=== PATIENT | male | born 1965 | race Caucasian/White ===

== ENCOUNTER 2022-03-19 16:23 | Observation (INO) ==
[2022-03-19] MEDS ORDERED: ONDANSETRON INJ 2 MG/ML 2 ML VIAL IV STA (16:38)
[2022-03-19] MEDS ORDERED: MoRPHine SULFATE 4 MG/ML 1 ML CARP\\VIAL IV STA (16:38)
[2022-03-19] MEDS ORDERED: SODIUM CHLORIDE 0.9% 500 ML IV STA (16:38)
[2022-03-19] MEDS ORDERED: KETOROLAC TROMETHAMINE 15 MG/ML VIAL IV ONE (16:43)
[2022-03-19 17:00] LABS: Hematocrit (blood only) 35.4 % (42-52); Hemoglobin 12.1 g/dL (14.0-18.0); Mean Corpuscular Hemoglobin 35.4 pg (25-34); Mean Corpuscular Hgb Conc 34.2 g/dL (32-36); Mean Corpuscular Volume 103.5 fL (80-100); Platelet Count 134 K/uL (130-400); RDW Coefficient of Variation 13.2 % (11.5-14.5); RDW Standard Deviation 49.7 fL (36.4-46.3); Red Blood Count 3.42 M/uL (4.7-6.1); White Blood Count 18.88 K/uL (4.8-10.8)
[2022-03-19 17:05] LABS: iSTAT Hemoglobin 12.2 g/dl (14.0-18.0); iSTAT Ionized Calcium 1.1 mmol/l (1.12-1.32); iSTAT Potassium 3.4 mmol/L (3.3-5.0)
[2022-03-19] MEDS ORDERED: OPTIRAY 320 100ml IV ONE (17:14)
--- NOTE | 2022-03-19 17:16 | Emergency Department Note ---
Impression & Plan Acute appendicitis ED Provider Note Provider: Daquan Bueno MD DATE OF SERVICE: 03/19/2022 CHIEF COMPLAINT: Abdominal pain HISTORY OF PRESENT ILLNESS: Patient is a 56-year-old gentleman presenting with onset around noon yesterday of severe lower to right-sided abdominal discomfort. Some chills. Nausea and not eating since yesterday. No trauma reported. Denies chest pain or shortness of breath but it hurts when he takes a deep breath. Patient denies a history of abdominal surgery. Patient states he does smoke alcohol. No radiation of the pain down the legs. Has not taken anything at home for the pain. Denies testicular or penile pain. REVIEW OF SYSTEMS: A total of 10 review of systems was obtained and negative except as stated above in the HPI. 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 NECK: Trachea midline. ENT: Mucous membranes pink and moist. LUNGS: Airway patent. No retractions. Breath sounds clear with good air entry bilaterally. HEART: Regular rate and rhythm. No chest wall tenderness ABDOMEN: No significant lower to right side abdominal pain with guarding. No significant epigastric or left-sided abdominal pain. SKIN: Acyanotic, warm, dry, without rashes EXTREMITIES: Without swelling, tenderness or deformity NEUROLOGICAL: No focal deficits. No aphasia. No facial droop or slurred speech. Ambulatory. EK bpm normal sinus rhythm. No PVC or PAC. No acute ST segment elevation or depression with QTC of 423. Normal axis CONTINUOUS CARDIAC MONITORING: was ordered and showed a heart rate of 80s-100s bpm in normal sinus rhythm to sinus tachycardia Patient's laboratory studies and imaging reviewed. Differential includes Appendicitis, testicular torsion, infections, diverticulitis, UTI, obstruction, mesenteric ischemia, aortic pathology, inflammatory bowel disease, renal colic, PUD, pancreatitis, biliary pathology, hernia, volvulus, constipation, as well as other pathologies. IMPRESSION/MEDICAL DECISION MAKING: Patient with onset yesterday of significant abdominal pain reporting chills and significant abdominal tenderness on exam. Given some IV fluids, Zofran for nausea, and pain medication. [id number] creatinine with normal renal function. CBC with evidence of significant leukocytosis of 18.8. Sent for CT scan of the abdomen pelvis given his pain and complaints. Lower suspicion for cardiac or pulm etiology. CT evidence of acute appendicitis without perforation or abscess per the CT report. Patient updated and discussed with general surgery. Cefoxitin ordered. On reevaluation the patient's pain is improving. Nausea improved. The OR for further care. DIAGNOSIS: Acute appendicitis DISPOSITION: Being evaluated by general surgery Past Med/Surg History Medical History Anemia Smoker Social History Smoking Status: Current every day smoker Feels Safe at Home: Yes Allergies Allergies Allergy/AdvReac Type Severity Reaction Status Date / Time No Known Allergies Allergy Unverified 03/19/22 17:04 Home Meds Home Medications Medication Instructions Recorded Confirmed No Known Home Medications 03/19/22 03/19/22 Results & Data (ED) Vital Signs Vital Signs - 24 hr 03/19/22 16:23 03/19/22 16:33 03/19/22 16:38 Temperature 37.3 C Temperature Source Oral Pulse Rate 95 H Pulse Rate [Apical] Pulse Rhythm Regular Pulse Rhythm [Apical] Pulse Strength Normal Pulse Strength [Apical] Respiratory Rate 18 20 Respiratory Effort / Characteristics Non-Labored Respiratory Depth Normal Normal Respiratory Pattern Blood Pressure 113/68 Blood Pressure [Right Arm] Blood Pressure Mean 83 Blood Pressure Mean [Right Arm] Blood Pressure Position Lying Blood Pressure Position [Right Arm] Pulse Oximetry 97 Oxygen Delivery Method Room Air Room Air Sepsis Recent Fever Within 48 Hours No Sepsis New/Unexplained Change in Mental Status No Sepsis Action Taken by Nursing No Action Required 03/19/22 18:10 03/19/22 18:24 Temperature 38.1 C H Temperature Source Oral Pulse Rate 85 Pulse Rate [Apical] 87 Pulse Rhythm Pulse Rhythm [Apical] Regular Pulse Strength Pulse Strength [Apical] Normal Respiratory Rate 20 18 Respiratory Effort / Characteristics Non-Labored Spontaneous Respiratory Depth Normal Respiratory Pattern Regular Blood Pressure 117/68 Blood Pressure [Right Arm] 102/65 Blood Pressure Mean Blood Pressure Mean [Right Arm] 77 Blood Pressure Position Blood Pressure Position [Right Arm] Sitting Pulse Oximetry 94 95 Oxygen Delivery Method Room Air Room Air Sepsis Recent Fever Within 48 Hours Sepsis New/Unexplained Change in Mental Status Sepsis Action Taken by Nursing Laboratory Data Result diagrams: 03/19/22 16:46 03/19/22 16:46 Lab Results 03/19/22 03/19/22 03/19/22 Range/Units 16:46 16:46 16:51 WBC 18.88 H (4.8-10.8) K/uL RBC 3.42 L (4.7-6.1) M/uL Hgb 12.1 L (14.0-18.0) g/dL POC Hgb 12.2 L (14.0-18.0) g/dl Hct 35.4 L (42-52) % POC Hct 36 L (42-52) % MCV 103.5 H (80-100) fL MCH 35.4 H (25-34) pg MCHC 34.2 (32-36) g/dL RDW Std Deviation 49.7 H (36.4-46.3) fL RDW Coeff of Kenisha 13.2 (11.5-14.5) % Plt Count 134 (130-400) K/uL MPV 10.0 (7.4-10.4) fL Immature Gran % (Auto) 0.3 % Neut % (Auto) 80.9 % Lymph % (Auto) 11.1 % Maverick % (Auto) 7.6 % Eos % (Auto) 0.0 % Baso % (Auto) 0.1 % Neut # (Auto) 15.27 H (1.4-6.5) K/uL Lymph # (Auto) 2.10 (1.2-3.4) K/uL Maverick # (Auto) 1.44 H (0.11-0.59) K/uL Eos # (Auto) 0.00 (0-0.5) K/uL Baso # (Auto) 0.01 (0-0.2) K/uL Immature Gran # (Auto) 0.06 H (0.00-0.02) K/uL POC Sodium 132 L (135-144) mmol/L Sodium 133 L (136-145) mmol/L POC Potassium 3.4 (3.3-5.0) mmol/L Potassium 3.4 L (3.5-5.1) mmol/L POC Chloride 94 L (101-112) mmol/L Chloride 97 L (98-107) mmol/L Carbon Dioxide 26 (21-32) mmol/L POC Total CO2 24 (24-31) mmol/L Anion Gap 10 (3-11) POC Anion Gap 18.0 (16-25) mmol/L POC BUN 7 (7-18) mg/dl BUN 9 (6-23) mg/dl Creatinine 1.12 (0.6-1.4) mg/dl POC Creatinine 1.0 (0.6-1.3) mg/dl Est Cr Clr Drug Dosing 79.1 ml/min Est GFR ( Amer) 85.3 ml/min Est GFR (Non-Af Amer) 73.6 ml/min BUN/Creatinine Ratio 8.0 L (10-20) Glucose 141 H (70-99(Fasting)) mg/dl POC Glucose (other) 139 H (70-99) mg/dl Calcium 8.7 (8.5-10.1) mg/dl POC Ioniz Calcium Javier 1.10 L (1.12-1.32) mmol/l Total Bilirubin 1.0 (0.2-1.0) mg/dl AST 14 (13-39) U/L ALT 11 (7-52) U/L Alkaline Phosphatase 60 (34-104) U/L Troponin I High Sens 5.4 (0-20) pg/ml Total Protein 6.8 (6.0-8.3) gm/dl Albumin 3.7 (3.4-5.0) gm/dl Globulin 3.1 (2.5-4.0) gm/dl Albumin/Globulin Ratio 1.2 (0.9-2) Lipase 8 L (11-82) U/L SARS-CoV-2, RNA, NAAT (NEGATIVE) 03/19/22 Range/Units 16:56 WBC (4.8-10.8) K/uL RBC (4.7-6.1) M/uL Hgb (14.0-18.0) g/dL POC Hgb (14.0-18.0) g/dl Hct (42-52) % POC Hct (42-52) % MCV (80-100) fL MCH (25-34) pg MCHC (32-36) g/dL RDW Std Deviation (36.4-46.3) fL RDW Coeff of Kenisha (11.5-14.5) % Plt Count (130-400) K/uL MPV (7.4-10.4) fL Immature Gran % (Auto) % Neut % (Auto) % Lymph % (Auto) % Maverick % (Auto) % Eos % (Auto) % Baso % (Auto) % Neut # (Auto) (1.4-6.5) K/uL Lymph # (Auto) (1.2-3.4) K/uL Maverick # (Auto) (0.11-0.59) K/uL Eos # (Auto) (0-0.5) K/uL Baso # (Auto) (0-0.2) K/uL Immature Gran # (Auto) (0.00-0.02) K/uL POC Sodium (135-144) mmol/L Sodium (136-145) mmol/L POC Potassium (3.3-5.0) mmol/L Potassium (3.5-5.1) mmol/L POC Chloride (101-112) mmol/L Chloride (98-107) mmol/L Carbon Dioxide (21-32) mmol/L POC Total CO2 (24-31) mmol/L Anion Gap (3-11) POC Anion Gap (16-25) mmol/L POC BUN (7-18) mg/dl BUN (6-23) mg/dl Creatinine (0.6-1.4) mg/dl POC Creatinine (0.6-1.3) mg/dl Est Cr Clr Drug Dosing ml/min Est GFR ( Amer) ml/min Est GFR (Non-Af Amer) ml/min BUN/Creatinine Ratio (10-20) Glucose (70-99(Fasting)) mg/dl POC Glucose (other) (70-99) mg/dl Calcium (8.5-10.1) mg/dl POC Ioniz Calcium Javier (1.12-1.32) mmol/l Total Bilirubin (0.2-1.0) mg/dl AST (13-39) U/L ALT (7-52) U/L Alkaline Phosphatase (34-104) U/L Troponin I High Sens (0-20) pg/ml Total Protein (6.0-8.3) gm/dl Albumin (3.4-5.0) gm/dl Globulin (2.5-4.0) gm/dl Albumin/Globulin Ratio (0.9-2) Lipase (11-82) U/L SARS-CoV-2, RNA, NAAT NEGATIVE (NEGATIVE) Administered Medications Discontinued Medications Sodium Chloride (Nss) 500 mls @ 999 mls/hr IV .Q31M STA Stop: 03/19/22 17:08 Last Infusion: 03/19/22 17:30 Dose: 0 mls/hr Documented by: [id number] Admin: 03/19/22 16:48 Dose: 999 mls/hr Documented by: [id number] Ioversol (Optiray 320 100ml) 92 ml IV ONCE ONE Stop: 03/19/22 17:15 Last Admin: 03/19/22 17:15 Dose: 92 ml Documented by: [id number] Ketorolac Tromethamine (Ketorolac Tromethamine 15 Mg/Ml Vial) 10 mg IV NOW ONE Stop: 03/19/22 16:44 Last Admin: 03/19/22 16:49 Dose: 10 mg Documented by: [id number] Morphine Sulfate (Morphine Sulfate 4 Mg/Ml 1 Ml Carp\Vial) 4 mg IV NOW STA Stop: 03/19/22 16:39 Last Admin: 03/19/22 16:50 Dose: 4 mg Documented by: [id number] Ondansetron HCl (Ondansetron Inj 2 Mg/Ml 2 Ml Vial) 4 mg IV NOW STA Stop: 03/19/22 16:39 Last Admin: 03/19/22 16:49 Dose: 4 mg Documented by: [id number] Imaging Data Radiologist's Impression: Abdomen/Pelvis CT 03/19/22 16:38 CT abd pelvis IV con only CLINICAL HISTORY: RLQ pain, nausea TECHNIQUE: Helical axial images of the abdomen and pelvis were obtained and displayed. Automated dose lowering techniques and/or adjustment according to patient size were utilized for this exam. This exam was performed with intravenous contrast. CT DOSE: 410.32 mGycm COMPARISON: None available at the time of this dictation. FINDINGS: Lower chest: Bibasilar atelectasis versus scarring is seen. Liver: Focal fatty changes are noted about the falciform ligament. A cyst is seen in the left lobe of the liver. Gallbladder and biliary tree: No calcified gallstones. Normal caliber wall. No intra- or extrahepatic biliary ductal dilation. Pancreas: Unremarkable, no focal lesions. Spleen: Unremarkable. Adrenals: Unremarkable. 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 Parapelvic cysts are noted on the left. Bladder: Unremarkable. Reproductive organs: Prostatic calcifications are seen which may represent prior hemorrhage or granulomatous disease. Mild prostatomegaly is seen. Bowel: There is marketed enlargement and wall thickening of the appendix measuring up to 14 mm in diameter. A fecalith is noted. No free air or drainable fluid collection is seen but there is extensive fat stranding. Lymph nodes Retroperitoneal: Unremarkable. Mesenteric: Unremarkable. Pelvic: Unremarkable. Peritoneum: Fat stranding is seen in the right lower quadrant. Vessels: Unremarkable. Abdominal wall: Unremarkable. Bones: Minimal degenerative changes are seen. IMPRESSION: Findings are compatible with acute appendicitis without evidence of perforation or abscess formation. ACT 112: Negative or not required by law. Electronically signed by: Daryl Miranda M.D. 03/19/2022 5:41 PM Discharge Plan Visit Data Chief Complaint: Abdominal Pain Stated Complaint: SHARP ABD PAIN, POSS APENDISITIS ED Provider: Daquan Bueno Discharge Problem: Acute appendicitis Patient Disposition: Being Evaluated by Surgeon Discharge Instructions Interventions: ED Discharge Assessment Last Done: 03/19/22 18:24 Forms Stand Alone Forms: [employer] Prescriptions Prescriptions: No Action No Known Home Medications RF: 0 Referrals Referrals: PCP,NO [Primary Care Provider] -
[2022-03-19 17:24] LABS: Albumin Globulin Ratio 1.2 (0.9-2); Albumin Level 3.7 gm/dl (3.4-5.0); Calcium 8.7 mg/dl (8.5-10.1); Creatinine Clr Calc Pharmacy 79.1 ml/min; Est GFR (African American) 85.3 ml/min; Est GFR (Non-African American) 73.6 ml/min; Globulin 3.1 gm/dl (2.5-4.0); Potassium 3.4 mmol/L (3.5-5.1); Total Protein 6.8 gm/dl (6.0-8.3)
[2022-03-19 17:27] LABS: Basophils # (auto) 0.01 K/uL (0-0.2); Basophils % (auto) 0.1 %; Immature Granulocytes # (auto) 0.06 K/uL (0.00-0.02); Immature Granulocytes % (auto) 0.3 %; Lymphocytes % (auto) 11.1 %; Monocytes # (auto) 1.44 K/uL (0.11-0.59); Monocytes % (auto) 7.6 %; Neutrophils # (auto) 15.27 K/uL (1.4-6.5); Neutrophils % (auto) 80.9 %
[2022-03-19 17:30] LABS: Troponin I High Sensitivity 5.4 pg/ml (0-20)
--- NOTE | 2022-03-19 17:43 | CT Scan Report ---
CT abd pelvis IV con only CLINICAL HISTORY: RLQ pain, nausea TECHNIQUE: Helical axial images of the abdomen and pelvis were obtained and displayed. Automated dose lowering techniques and/or adjustment according to patient size were utilized for this exam. This e xam was performed with intravenous contrast. CT DOSE: 410.32 mGycm COMPARISON: None available at the time of this dictation. FINDINGS: Lower chest: Bibasilar atelectasis versus scarring is seen. Liver: Focal fatty changes are noted about the falciform ligament. A cyst is seen in the left lobe of the liver. Gallbladder and biliary tree: No calcified gallstones. Normal caliber wall. No intra- or extrahepatic biliary ductal dilation. Pancreas: Unremarkable, no focal lesions. Spleen: Unremarkable. Adrenals: Unremarkable. 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 Parapelvi c cysts are noted on the left. Bladder: Unremarkable. Reproductive organs: Prostatic calcifications are seen which may represent prior hemorrhage or granul omatous disease. Mild prostatomegaly is seen. Bowel: There is marketed enlargement and wall thickening of the appendix measuring up to 14 mm in collin meter. A fecalith is noted. No free air or drainable fluid collection is seen but there is extensive fat stranding. Lymph nodes Retroperitoneal: Unremarkable. Mesenteric: Unremarkable. Pelvic: Unremarkable. Peritoneum: Fat stranding is seen in the right lower quadrant. Vessels: Unremarkable. Abdominal wall: Unremarkable. Bones: Minimal degenerative changes are seen. IMPRESSION: Findings are compatible with acute appendicitis without evidence of perforation or abscess formation. ACT 112: Negative or not required by law. Electronically signed by: Daryl Miranda M.D. 03/19/2022 5:41 PM
[2022-03-19] MEDS ORDERED: cefOXitin 2,000 MG/60 ML BAG IV STA (17:50)
[2022-03-19] MEDS ORDERED: fentaNYL citrate 100 MCG/2 ML VIAL ONE ×2 (18:06→19:35)
[2022-03-19] MEDS ORDERED: PROPOFOL IV EMULSION 10 MG/ML 20 ML VIAL IV ONE (18:06)
[2022-03-19] MEDS ORDERED: LIDOCAINE 2% 2 ML VIAL/AMP(20MG/ML) INFIL ONE (18:06)
[2022-03-19] MEDS ORDERED: MIDAZOLAM HCL 1 MG/ML 2ML VIAL ONE (18:06)
[2022-03-19] MEDS ORDERED: ROCURONIUM BROMIDE 10 MG/ML 5 ML VIAL IV ONE (18:06)
--- NOTE | 2022-03-19 18:15 | Anesthesiology Consultation ---
Date of Service March 19, 2022 Assessment & Plan (1) Encounter for pre-operative examination: Chart Review Chart Review: Acceptable Risk for Surgery and Patient NOT seen in Pre Admission Testing Consults Requested none History Surgery Operation Date: 03/19/22 17:55 Proposed Procedures p Laparoscopic Appendectomy - Marcio Alcala DO Height/Weight Height: 5 ft 11 in Weight: 75 kg Allergies Allergy/AdvReac Type Severity Reaction Status Date / Time No Known Allergies Allergy Unverified 03/19/22 17:04 Medications Home Medications Medication Instructions Recorded Confirmed Last Taken No Known Home Medications 03/19/22 03/19/22 Unknown Past Medical History Medical History Anemia Smoker Social History Smoking Status: Current every day smoker Physical Exam Vital Signs Last Vital Signs Temp 37.3 C 03/19/22 16:33 Pulse 95 H 03/19/22 16:33 Resp 20 03/19/22 16:33 BP 113/68 03/19/22 16:33 Pulse Ox 97 03/19/22 16:33 Testing Laboratory Results 03/19/22 16:46 03/19/22 16:46 03/19/22 16:51 POC Glucose (other) 139 H Electrocardiogram Date: 03/19/22 Findings: + NSR @ (87) Other Testing CT abd pelvis IV con only CLINICAL HISTORY: RLQ pain, nausea TECHNIQUE: Helical axial images of the abdomen and pelvis were obtained and displayed. Automated dose lowering techniques and/or adjustment according to patient size were utilized for this exam. This exam was performed with intravenous contrast. CT DOSE: 410.32 mGycm COMPARISON: None available at the time of this dictation. FINDINGS: Lower chest: Bibasilar atelectasis versus scarring is seen. Liver: Focal fatty changes are noted about the falciform ligament. A cyst is seen in the left lobe of the liver. Gallbladder and biliary tree: No calcified gallstones. Normal caliber wall. No intra- or extrahepatic biliary ductal dilation. Pancreas: Unremarkable, no focal lesions. Spleen: Unremarkable. Adrenals: Unremarkable. 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 Parapelvic cysts are noted on the left. Bladder: Unremarkable. Reproductive organs: Prostatic calcifications are seen which may represent prior hemorrhage or granulomatous disease. Mild prostatomegaly is seen. Bowel: There is marketed enlargement and wall thickening of the appendix measuring up to 14 mm in diameter. A fecalith is noted. No free air or drainable fluid collection is seen but there is extensive fat stranding. Lymph nodes Retroperitoneal: Unremarkable. Mesenteric: Unremarkable. Pelvic: Unremarkable. Peritoneum: Fat stranding is seen in the right lower quadrant. Vessels: Unremarkable. Abdominal wall: Unremarkable. Bones: Minimal degenerative changes are seen. IMPRESSION: Findings are compatible with acute appendicitis without evidence of perforation or abscess formation. ACT 112: Negative or not required by law. Electronically signed by: Daryl Miranda M.D. 03/19/2022 5:41 PM Dictated:03/19/22 1736
[2022-03-19] MEDS ORDERED: fentaNYL citrate 100 MCG/2 ML VIAL IV PRN (18:16)
[2022-03-19] MEDS ORDERED: LABETALOL HCL IV 5 MG/ML 20ML IV PRN (18:16)
[2022-03-19] MEDS ORDERED: HYDROmorphone INJ 1 MG/ML SYRINGE IV PRN (18:16)
[2022-03-19] MEDS ORDERED: ONDANSETRON INJ 2 MG/ML 2 ML VIAL IV PRN ×2 (18:16→20:45)
[2022-03-19] MEDS ORDERED: MEPERIDINE HCL 25 MG/ML CARP/VIAL IV PRN (18:16)
[2022-03-19] MEDS ORDERED: PHENYLEPHRINE 100MCG/ML 5ML SYR IV PRN (18:16)
[2022-03-19] MEDS ORDERED: ATROPINE SULFATE 0.1 MG/ML 10ML SYR IV PRN (18:16)
[2022-03-19] MEDS ORDERED: ePHEDrine sulfate 50 MG/ML AMP IV PRN (18:16)
[2022-03-19] MEDS ORDERED: BUPIVACAINE/EPINEPHRINE 0.25% 1:200,000 30 ML VIAL ONE (18:39)
--- NOTE | 2022-03-19 18:45 | History & Physical Report ---
Date of Service March 19, 2022 Assessment & Plan (1) Acute appendicitis: Plan: Discussed his diagnosis as well as options and risks. We discussed the risks of laparoscopic appendectomy which include bleeding, infection, injury to another structure such as bowel or ureter, DVT, PE, PA, CVA etc. following our discussion I answered all of his questions. We will proceed DAMIEN with laparoscopic appendectomy. He is agreeable with the plan. Acute appendicitis type: with localized peritonitis Appendicitis abscess presence: without abscess Appendicitis gangrene presence: unspecified whether gangrene present Appendicitis perforation presence: without perforation Qualified Code(s): K35.30 - Acute appendicitis with localized peritonitis, without perforation or gangrene (2) Smoker: History of Present Illness Primary Care Provider: NO PCP 56-year-old male who is from out of town but is in [place] working. Yesterday morning he was having some abdominal pain which progressed over the last 24 hours. The pain is now severe in his right lower quadrant. There is leukocytosis of 18,[address] scan consistent with acute appendicitis. Tonsillectomy is his only prior surgical history. Allergies Allergy/AdvReac Type Severity Reaction Status Date / Time No Known Allergies Allergy Unverified 03/19/22 17:04 Home Medications Medication Instructions Recorded Confirmed Type No Known Home Medications 03/19/22 03/19/22 History Past Med/Surg History Medical History Anemia Smoker Social History Smoking Status: Current every day smoker Feels Safe at Home: Yes Review of Systems All systems reviewed & are unremarkable except as noted in HPI & below Physical Exam Constitutional: WD/WN, vitals as above no acute distress and not ill appearing Eyes: PERRL, conjunctivae normal, anicteric sclerae EOM intact bilaterally ENMT: external ear and nose normal, oropharynx normal Ears: no hearing impairment Neck: trachea midline, no thyromegaly Respiratory: normal respiratory effort; no respiratory distress and does not use accessory muscles Cardiovascular: Rate/Rhythm: regular rate and regular rhythm Gastrointestinal (Abdomen): Soft. Positive right lower quadrant tenderness. Positive Rovsing. Positive heel strike. Skin: no rashes, warm and dry Psychiatric: Orientation: alert, oriented x 3 and cooperative Results & Data ([facility]) Vital Signs (Past 12 Hours) Vital Signs Temp Pulse Pulse Resp BP BP Pulse Ox 03/19/22 18:24 85 18 117/68 95 03/19/22 18:10 38.1 C H 87 20 102/65 94 03/19/22 16:33 37.3 C 95 H 20 113/68 97 03/19/22 16:23 18
[2022-03-19] MEDS ORDERED: DEXAMETHASONE SOD INJ 4 MG/ML VIAL ONE (18:53)
[2022-03-19] MEDS ORDERED: ONDANSETRON INJ 2 MG/ML 2 ML VIAL ONE (18:53)
[2022-03-19] MEDS ORDERED: ARTIFICIAL TEARS OP OINT 3.5 GM TUBE ONE (19:02)
[2022-03-19] MEDS ORDERED: PHENYLEPHRINE HCL 10 MG/ML VIAL ONE (19:10)
[2022-03-19] MEDS ORDERED: NEOSTIGMINE METHYLSULFATE 1 MG/ML 10ML VIAL ONE (19:25)
[2022-03-19] MEDS ORDERED: KETOROLAC 30 MG/ML VIAL ONE (19:25)
[2022-03-19] MEDS ORDERED: GLYCOPYRROLATE 0.2 MG/ML VIAL ONE (19:25)
--- NOTE | 2022-03-19 19:46 | Operative Report ---
PG Post Operative Report Pre & Post Diagnosis Operation Date: 03/19/22 17:55 Pre-Op Diagnosis: Acute appendicitis with peritonitis Post-Op Diagnosis: Acute gangrenous appendicitis with peritonitis I identified the patient and participated in the time-out.: Yes Procedure Operation Date: 03/19/22 17:55 Actual Procedures p Laparoscopic Appendectomy(Not Applicable) - Marcio Alcala DO Surgeon Marcio Alcala DO Type Casting Machine Operator felicity Vincent Estimated Blood Loss 10 Findings Consistent with Post-Op Diagnosis Specimens appendix Description of Procedure After informed consent was obtained the patient was taken to the operating room and placed in supine position. After successful intubation a Lynn catheter was placed and the left arm was tucked. I began by making a periumbilical incision with an 11 blade scalpel and carried this down through the soft tissue using electrocautery. The anterior rectus fascia was opened using electrocautery and 2 #0 Vicryl stay sutures were placed. The peritoneum was elevated using hemostats and incised under direct vision using a Metzenbaum scissor. A finger sweep was performed. A 12 mm Fine trocar was placed and the abdomen was insufflated to 18 mmHg. A laparoscope was inserted and the abdomen was examined in 360. A suprapubic 5 mm port and a left lower quadrant 12 mm port were placed under direct vision. The patient was air planed to the left as well as placed in a slight Trendelenburg position. We began by looking in the right lower quadrant. We were able to readily identify the appendix and it was grossly inflamed. It had not perforated but it was severely gangrenous. There was a small amount of purulent fluid in the right lower quadrant and the pelvis. We immediately irrigated and suctioned this out. I was able to use primarily blunt dissection to pull the appendix away from the right lower quadrant sidewall. After making a small window in the mesentery of the appendix with a [place] dissector near its base, I was able to use a MURALI brown cartridge 60 mm stapler to transect the mesentery of the appendix. Next I used the same 60 mm brown cartridge stapler to transect the appendix itself at its base with the cecum. It was then placed into an Endo Catch bag and removed from the camera port site. We thoroughly irrigated the right lower quadrant as well as the pelvis. There was adequate hemostasis. I ran the small bowel backwards from the terminal ileum for about 6 feet all of which was normal. All the peritoneal surfaces were normal. Small/ large bowel, liver, stomach etc. all appeared grossly normal. We did a final irrigation and then removed all the trochars and desufflated the abdomen. The fascia of the camera port as well as the left lower quadrant were closed using 0 Vicryl in [id number] fashion. Wounds were all irrigated and closed using 4-0 Monocryl. Marcaine was injected around them for postoperative analgesia and skin glue used as a dressing. The patient was awakened extubated and transferred to recovery in stable condition. My physician's lab assistant was present through the entire case. he assisted with prepping the patient and helped with exposure for port placement, helped run the camera and helped with fascial/wound closure at the end of the procedure as well as dressing placement. I attest to the content of the Intraoperative Record and any orders documented therein. Any exceptions are noted below. I attest to the content of the Intraoperative Record and any orders documented therein. Any exceptions are noted below.
[2022-03-19] MEDS ORDERED: PIPERACILLIN/TAZOBACTAM 3.375 GM in DEXTROSE 5% 100 ML IV ONE (20:00)
[2022-03-19] MEDS ORDERED: ACETAMINOPHEN 1,000 MG/100 ML VIAL IV STA (20:06)
[2022-03-19] MEDS ORDERED: ACETAMINOPHEN 1000 MG/100 ML IV IV ONE (20:11)
--- NOTE | 2022-03-19 20:31 | Anesthesiology Progress Note ---
Date of Service March 19, 2022 Anesthesia Post Procedure Vital Signs Vital Signs: Temp Pulse Pulse Resp BP BP Pulse Ox 03/19/22 20:20 37.1 C 81 21 99/61 L 96 03/19/22 20:10 76 19 109/59 L 100 03/19/22 20:00 80 21 103/63 96 03/19/22 19:53 37.9 C H 83 21 104/65 97 03/19/22 18:24 85 18 117/68 95 03/19/22 18:10 38.1 C H 87 20 102/65 94 03/19/22 16:33 37.3 C 95 H 20 113/68 97 03/19/22 16:23 18 Pain Intensity Right Lower Abdomen: Pain Intensity: 2 Transfer of Care Handoff Completed per policy Notes Mental Status: alert / awake / arousable Patient Amnestic to Procedure: Yes Nausea / Vomiting: adequately controlled Pain: adequately controlled Airway Patency, RR, SpO2: stable & adequate BP & HR: stable & adequate Hydration State: stable & adequate Anesthetic Complications: no major complications apparent and Pt Satisfied with anesthetic care
[2022-03-19] MEDS ORDERED: PIPERACILLIN/TAZOBACTAM 4.5 GM in DEXTROSE 5% 100 ML IV SCH (20:45)
[2022-03-19] MEDS ORDERED: MoRPHine SULFATE 4 MG/ML 1 ML CARP\\VIAL IV PRN (20:45)
[2022-03-19] MEDS: POTASSIUM CHLORIDE 10 MEQ in LACTATED RINGER'S 1,000 ML IV SCH (21:52)
[2022-03-20] MEDS: PIPERACILLIN/TAZOBACTAM 3.375 GM in DEXTROSE 5% 100 ML IV SCH ×2 (00:05→09:33)
[2022-03-20] MEDS: ACETAMINOPHEN 1,000 MG/100 ML VIAL IV SCH ×2 (04:55→14:05)
[2022-03-20 07:23] LABS: Basophils # (auto) 0.01 K/uL (0-0.2); Hematocrit (blood only) 31.4 % (42-52); Immature Granulocytes # (auto) 0.07 K/uL (0.00-0.02); Immature Granulocytes % (auto) 0.3 %; Lymphocytes # (auto) 0.59 K/uL (1.2-3.4); Lymphocytes % (auto) 2.7 %; Mean Corpuscular Hemoglobin 36.5 pg (25-34); Mean Corpuscular Volume 104.3 fL (80-100); Mean Platelet Volume 10.1 fL (7.4-10.4); Monocytes # (auto) 1.91 K/uL (0.11-0.59); Monocytes % (auto) 8.8 %; Neutrophils # (auto) 19.16 K/uL (1.4-6.5); Neutrophils % (auto) 88.2 %; Platelet Count 108 K/uL (130-400); RDW Coefficient of Variation 13.1 % (11.5-14.5); Red Blood Count 3.01 M/uL (4.7-6.1); White Blood Count 21.74 K/uL (4.8-10.8)
[2022-03-20 07:42] LABS: BUN Creatinine Ratio 14.4 (10-20); Creatinine Clr Calc Pharmacy 85.1 ml/min; Est GFR (African American) 93.2 ml/min; Est GFR (Non-African American) 80.5 ml/min; Potassium 3.9 mmol/L (3.5-5.1)
[2022-03-20] MEDS ORDERED: SODIUM CHLORIDE 0.9% 1000ML 1,000 ML IV ONE ×2 (08:18→09:42)
--- NOTE | 2022-03-20 08:56 | Surgery Progress Note ---
Date of Service March 20, 2022 Assessment & Plan (1) Acute appendicitis: Plan: POD#1 laparoscopic appendectomy for gangrenous appendicitis -WBC 21, Cr: 1. He is afebrile with some asymptomatic hypotension noted this morning -Patient reports feeling well. no abdominal complaints -Was retaining urine, but is starting to void -Will advance diet to regular -A 1L NSS bolus has been ordered for hypotension -We will reevaluate patient this AM to see how he is doing and if additional IVF necessitated. If BP improved and patient feeling well we will consider discharge to home later today. Low threshold to keep him here if any issues given intraop findings -If dispos will send out on a 5 day course of abx to complete. F/u in clinic with Dr. Alcala in 1-2 weeks -[facility] surgery covering the weekend if he stays another night as above. will give fluid bolus and recheck BP. pt really wants to go home. wbc likely reactive. he looks great. ambulating without pain. no nausea. feels 100% better than yesterday if BP improves with hydration will consider d/c later today. Admission and Anticipated Discharge Date Admission Date: March 19, 2022 Subjective Patient is feeling well. Abdominal pain is controlled. Denies nausea/vomiting. Was having a difficult time urinating, but has twice now without issues. No feelings of bladder discomfort. No lightheadedness/dizziness. Physical Exam Physical Exam: awake/alert, no distress Gastrointestinal (Abdomen): Inspection/Auscultation: + abdomen distended (mild) and + abdominal surgical incision (c/d/i with some surrouding ecchymosis brian incisionally) Percussion/Palpation: abdomen soft; abdomen nontender Results & Data ([facility]) Vital Signs (Past 12 Hours) Vital Signs Temp Pulse Resp BP BP Pulse Ox 03/20/22 07:43 88/44 L 99 03/20/22 07:30 36.4 C L 60 16 73/44 L 93/56 L 95 03/20/22 04:00 104/58 L 03/20/22 03:31 36.5 C 69 18 88/56 L 84/42 L 98 03/19/22 23:41 36.4 C 61 18 97/60 L 100 03/19/22 22:34 36.4 C 64 18 94/56 L 98 03/19/22 21:00 37.9 C H 75 18 95/55 L 94 PG Care Time/CCT Total # of Minutes Spent Total Time Spent with Patient: Total time spent is greater than 50% in coordination of care (as documented) at patient's floor/unit and/or counseling patient: Coding Level of Care Code None Diagnoses Acute appendicitis K35.30 Acute appendicitis type: with localized peritonitis Appendicitis abscess presence: without abscess Appendicitis gangrene presence: unspecified whether gangrene present Appendicitis perforation presence: without perforation (1) Acute appendicitis Acute appendicitis type: with localized peritonitis Appendicitis abscess presence: without abscess Appendicitis gangrene presence: unspecified whether gangrene present Appendicitis perforation presence: without perforation Qualified Code(s): K35.30 - Acute appendicitis with localized peritonitis, without perforation or gangrene
--- NOTE | 2022-03-20 10:18 | Electrocardiogram Report ---
Test Reason : Blood Pressure : / mmHG Vent. Rate : 087 BPM Atrial Rate : 087 BPM P-R Int : 158 ms QRS Dur : 102 ms QT Int : 352 ms P-R-T Axes : 047 062 054 degrees QTc Int : 423 ms Normal sinus rhythm Normal ECG No previous ECGs available Confirmed by Panchito Rodriguez ([id number]) on 03/20/2022 10:18:37 AM Referred By: REFERRED SELF Confirmed By:Panchito Rodriguez
[2022-03-20] MEDS: POTASSIUM CHLORIDE 10 MEQ in LACTATED RINGER'S 1,000 ML IV SCH (10:43)
--- NOTE | 2022-03-20 12:34 | Communication Note ---
Date of Service: March 20, 2022 Patient re-examined on afternoon rounds. He received 2L total of NSS bolus this morning for asymptomatic hypotension. It has responded slightly, last BP check was 95/64. As noted this AM patient also had a bump in his WBC to 21 (18), likely reactive. Given his intraop findings of gangrenous appendicitis in addition to his blood work and blood pressures it was recommended patient stay another night for IV abx and ongoing observation. Upon discussion with the patient he is adamant that he is feeling well and expresses strong wishes to go home. 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 He denies any dizziness, lightheadedness, nausea/vomiting, or abdominal pain. Outside of his blood pressure the patient is afebrile with normal heart rate and O2 saturations. He is voiding and tolerating a regular diet. Patient clinically looks great and is denying any complaints what so ever. He says he's gotten more rest here than he has in a long time and is feeling well enough to go home. Given the patient's situation we will let him be discharged to home despite our preference to keep him another night. 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 He was educated on return precautions should he develop nausea/vomiting, fevers, acute/severe abdominal pain, etc.. and to return to the closest ER to him. He was given our office number to call us / should he have any concerns while at home. He expressed understanding and gratitude and we will discharge him to home this afternoon.
== END 2022-03-20 15:03 | disposition home or self-care (01) ==
LOC: ED 16:23 → 3W 18:24 → OR 18:24